=== PATIENT | female | born 1965 | race Caucasian/White ===

== ENCOUNTER 2024-07-06 12:57 | Outpatient (AMB) | payer OTHER, SELFPAY ==
--- NOTE | 2024-07-06 12:58 | A.OFFVIS_ITS ---
Vital Signs 07/06/24 13:08 Height 5 ft 2 in Weight 162 lb 4.163 oz BMI 29.7 BP 92/64 Blood Pressure Location Lt brachial Position Sitting Respiration 16 Pulse 88 Pulse Source Pulse Oximeter Pulse Oximetry (%) 97 Oxygen Delivery Method Room Air Intake Visit Reasons: arthritis/ATC MR RECIEVED Intake Note: Patient presents for Arthritis. The medicine is working for both hand pain. Allergies No Known Allergies Allergy (Verified 07/06/24 13:03) HPI HPI arthritis/ATC MR RECIEVED: Details: She is doing well. She has not had any recent flares. [facility] Family History (Updated 07/06/24 @ 13:07 by AKIRA Killian) Father History of heart attack Mother Stroke Social History (Updated 07/06/24 @ 13:08 by AKIRA Killian) Household Members: None Housing: Apartment Alcohol intake: former Comment: OCC Patient Tobacco Use Status: Never used Tobacco Review of Systems Const All systems reviewed & are unremarkable except as noted in HPI and below Physical Exam Vital Signs: Last Vital Signs Pulse 88 07/06/24 13:08 Resp 16 07/06/24 13:08 BP 92/64 07/06/24 13:08 Pulse Ox 97 07/06/24 13:08 Oxygen Delivery Method Room Air 07/06/24 13:08 BMI result Body Mass Index 29.7 Const Other: General: Comfortable Skin: No lesions seen MSK: No tenderness of any joints in her hands. No synovitis. 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 Continues to have benefit on meloxicam. Code(s): M19.041 - Primary osteoarthritis, right hand; M19.042 - Primary osteoarthritis, left hand Category: Medical Plan: Continue meloxicam 15 mg daily Labs for drug monitoring on chronic NSAID due today. Patient prefers to have labs done at [facility] in [place]. 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 (NSAID) Category: Medical Plan: See above Orders: Orders Alanine Aminotransferase Today M19.041 - Primary osteoarthritis, right hand, M19.042 - Primary osteoarthritis, left hand, Z79.1 - [facility] (current) use of non-steroidal anti-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 (NSAID) Aspartate Amino Transferase Today M19.041 - Primary osteoarthritis, right hand, M19.042 - Primary osteoarthritis, left hand, Z79.1 - [facility] (current) use of non-steroidal anti-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 (NSAID) Complete Blood Count Auto Diff Today M19.041 - Primary osteoarthritis, right hand, M19.042 - Primary osteoarthritis, left hand, Z79.1 - [facility] (current) use of non-steroidal anti-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 (NSAID) Creatinine Today M19.041 - Primary osteoarthritis, right hand, M19.042 - Primary osteoarthritis, left hand, 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
[2024-07-06 13:08] VITALS: BP 92/64; PULSE 88; RESP 16; O2SAT 97; BMI 29.7
== END 2024-07-06 13:29 | disposition home or self-care (01) ==
PROVIDERS: PCP Internal Medicine; Visit Provider Internal Medicine Rheumatology
DX: M19.041 Primary osteoarthritis, right hand (principal); M19.042 Primary osteoarthritis, left hand; Z79.1 Long term (current) use of non-steroidal anti-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 (NSAID)
CPT/HCPCS: 99213; G2211

== ENCOUNTER → 2024-07-06 12:57 | Outpatient (BNVA) | payer OTHER, SELFPAY | PROVIDERS: PCP Internal Medicine; Visit Provider Internal Medicine Rheumatology | DX: M19.041 Primary osteoarthritis, right hand (principal); M19.042 Primary osteoarthritis, left hand; Z79.1 Long term (current) use of non-steroidal anti-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 (NSAID) | CPT/HCPCS: 99212 ==

== ENCOUNTER 2025-01-04 12:48 | Outpatient (REF) | payer OTHER, SELFPAY ==
[2025-01-04 17:47] LABS: MANUAL DIFF FLAG NO
[2025-01-04 18:07] LABS: Basophils Percent Auto 0.6 % (0-2); Eosinophils Absolute Auto 0.1 X10*3/uL (0.0-0.4); Eosinophils Percent Auto 1.9 % (0-4); Hematocrit 35.7 % (37.0-47.0); Imm Gran Abs Auto 0.01 X10*3/uL (0.00-0.03); Imm Gran Pct Auto 0.2 % (0.0-0.4); Lymphocytes Absolute Auto 3.3 X10*3/uL (1.2-4.9); Lymphocytes Percent Auto 50.2 % (20-40); Mean Corpuscular HGB Conc 33.6 g/dl (31.0-35.0); Mean Corpuscular Hemoglobin 29.5 pg (27.0-33.0); Mean Corpuscular Volume 87.7 fL (80.0-98.0); Mean Platelet Volume 10.4 fL (9.4-12.3); Monocytes Absolute Auto 0.5 X10*3/uL (0.1-1.2); Monocytes Percent Auto 7.3 % (2-11); Neutrophils Absolute Auto 2.6 x10*3/uL (2.0-8.3); Neutrophils Percent Auto 39.8 % (45-73); Platelet Count 226 X10*3/uL (160-400); Red Blood Count 4.07 X10*6/uL (4.20-5.50); Red Cell Distribution Width 12.1 % (11.0-16.0); White Blood Count 6.5 X10*3/uL (4.8-10.8)
[2025-01-04 18:15] LABS: Alanine Aminotransferase 29 U/L (0-31); Aspartate Amino Transferase 26 U/L (5-31); Estimated Glomerular Filt Rate > 60
== END 2025-01-04 12:49 | disposition home or self-care (01) ==
LOC: HO.HKASLDS 12:48
PROVIDERS: PCP Internal Medicine; Visit Provider Internal Medicine Rheumatology
DX: M19.041 Primary osteoarthritis, right hand (principal); M19.042 Primary osteoarthritis, left hand; Z79.1 Long term (current) use of non-steroidal anti-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 (NSAID)
CPT/HCPCS: 36415; 82565; 84450; 84460; 85025; 99212

== ENCOUNTER 2025-01-04 12:48 | Outpatient (AMB) | payer OTHER, SELFPAY ==
--- OUTSIDE RECORDS SUMMARY | 2025-01-04 12:50 | XMS_ITS | Clinical Summary ---
Author Organization [facility] ity Address [address] [place] [address] Care Team Providers Care President [employer] Name Role Phone Unavailable Primary Care Provider Unavailabl e Social History Tobacco Use Types Packs/Day Years Used Date Smoking Tobacco: Never Assessed Comments Unknown Sex and Gender Information Value Date Recorded Sex Assigned at Not on file Legal Sex Female 5:36 AM EST Gender Identity Not on file Sexual Orientation Not on file Plan of Treatment Health Maintenance Due Date Last Done Comments Breast Cancer Screening 1965 DTaP,Tdap,and Td Vaccines (1 - Tdap) 1982 Cervical Cancer Screening: P ap Smear 01/21/1984 Pneumococcal Vaccine: 50+ Ye ars (1 of 1 - PCV) 2013 Zoster Vaccines (1 of 2) 2013 COVID-19 Vaccine ( - 2023-2 5 season) 2024 Influenza Vaccine (Season Ended) 2025 RSV Immunization Adult Patie nts (1 - 1-dose 75+ series) 2038 HIB Vaccines Aged Out No longer eligi ble based on patient's age to complete this topic HPV Vaccines Aged Out No longer eligi ble based on patient's age to complete this topic Hepatitis A Vaccines Aged Out No long er eligible based on patient's age to complete this topic Hepatitis B Vaccines Aged Out No long er eligible based on patient's age to complete this topic IPV Vaccines Aged Out No longer eligi ble based on patient's age to complete this topic MMR Vaccines Aged Out No longer eligi ble based on patient's age to complete this topic Meningococcal ACWY Vaccine Aged Out N o longer eligible based on patient's age to complete this topic Meningococcal B Vaccine Aged Out No l onger eligible based on patient's age to complete this topic Pneumococcal Vaccine: Pediat rics (0 to 5 Years) and At-Risk Patients (6 to 64 Years) Aged Out No longer eligible b ased on patient's age to complete this topic RSV Immunization Patients Un kiran 20 months Aged Out No longer eligible b ased on patient's age to complete this topic Varicella Vaccines Aged Out No longer eligible based on patient's age to complete this topic
--- NOTE | 2025-01-04 12:52 | MHC.OFFVIS ---
Vital Signs 01/04/25 12:53 Height 5 ft 2 in Weight 155 lb 13.869 oz BMI 28.5 BP 100/70 Blood Pressure Location Rt brachial Position Sitting Pulse 70 Pulse Source Pulse Oximeter Pulse Oximetry (%) 98 Oxygen Delivery Method Room Air Intake Visit Reasons: 6 mo f/u Intake Note: Patient presents for Arthritis. Allergies No Known Allergies Allergy (Verified 01/04/25 12:58) HPI HPI 6 mo f/u: Details: She is doing well. When she bends her knuckles she has pain. She has relief when she takes diclofenac gel in the morning. PFSH Family History Father History of heart attack Mother Stroke Social History Household Members: None Housing: Apartment Alcohol intake: former Comment: OCC Patient Tobacco Use Status: Never used Tobacco Physical Exam Vital Signs: Last Vital Signs Pulse 70 01/04/25 12:53 BP 100/70 01/04/25 12:53 Pulse Ox 98 01/04/25 12:53 Oxygen Delivery Method Room Air 01/04/25 12:53 BMI result Body Mass Index 28.5 Const Other: General: Comfortable Skin: No lesions seen MSK: No tenderness of any joints in her hands. No synovitis. 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 Continues to have benefit on meloxicam. Code(s): M19.041 - Primary osteoarthritis, right hand; M19.042 - Primary osteoarthritis, left hand Category: Medical Plan: She will try to reduce frequency of meloxicam to every other day We discuss benefit of turmeric in reducing hand pain from osteoarthritis. 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 (NSAID) Aspartate Amino Transferase Today M19.041 - Primary osteoarthritis, right hand, M19.042 - Primary osteoarthritis, left hand, Z79.1 - senior care (current) use of non-steroidal anti-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 (NSAID) Complete Blood Count Auto Diff Today M19.041 - Primary osteoarthritis, right hand, M19.042 - Primary osteoarthritis, left hand, Z79.1 - senior care (current) use of non-steroidal anti-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 (NSAID) Alanine Aminotransferase Today M19.041 - Primary osteoarthritis, right hand, M19.042 - Primary osteoarthritis, left hand, 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
[2025-01-04 12:53] VITALS: BP 100/70; PULSE 70; O2SAT 98; BMI 28.5
== END 2025-01-04 13:58 | disposition home or self-care (01) ==
LOC: HO.RHES 12:48
PROVIDERS: PCP Internal Medicine; Visit Provider Internal Medicine Rheumatology
DX: M19.041 Primary osteoarthritis, right hand (principal); M19.042 Primary osteoarthritis, left hand; Z79.1 Long term (current) use of non-steroidal anti-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 (NSAID)
CPT/HCPCS: 99213; G2211